=== PATIENT | female | born 1945 | race Caucasian/White ===

== ENCOUNTER 2016-10-21 16:48 | Emergency (ER) | payer OTHER ==
[~2016-10-21] VITALS: Ht 160 cm; Wt 84.4 kg
[~2016-10-21 16:48] MED LIST: ACTOPLUS MET 851 TAB PO; ACTOS30 M1 PO; ASPIRIN EC81 M1 PO; ATORVASTATIN CA20 MG PO; AUGMENTIN 875875 MG PO; CITALOPRAM HYDR20 MG PO; CLINDAMYCIN HY300 MG PO; DILTIAZEM 24HR180 MG PO; FERROUS SULFAT325 M3 PO; LEVEMIR100 UNIT/1 SC; PANTOPRAZOLE SO40 M1 PO; REGLAN10 MG PO; SYNTHROID75 MCG PO
--- NOTE | 2016-10-21 17:28 | ED UPPER/LOWER EXTREMITY COMPL ---
History of Present Illness General Chief Complaint: Fall Stated Complaint: R ARM PAIN S/P FALL Source: patient, family Exam Limitations: no limitations Vital Signs & Intake/Output Vital Signs & Intake/Output Vital Signs Date Time Temp Pulse Resp B/P B/P Pulse O2 O2 Flow FiO2 Mean Ox Delivery Rate 10/21 2114 97.7 68 16 138/66 97 Room Air 10/21 1910 Room Air 10/21 1831 96.2 68 18 178/82 97 Room Air 10/21 1650 97.4 60 20 138/82 98 Room Air Allergies Coded Allergies: amoxicillin (From AUGMENTIN) (PT REPORTS CAN ONLY TAKE IV, IF TAKEN ORALLY VOMITS 01/18/16) clavulanic acid (From AUGMENTIN) (PT REPORTS CAN ONLY TAKE IV, IF TAKEN ORALLY VOMITS 01/18/16) Reconcile Medications Aspirin (Ecotrin*) 81 MG TABLET.DR 1 TAB PO DAILY HEART/BLOOD (Reported) Atorvastatin Calcium 20 MG TABLET 1 TAB PO DAILY CHOLESTEROL (Reported) Diltiazem HCl (Diltiazem 24HR ER) 180 MG CAP.ER.24H 1 CAP PO DAILY HEART/BP ( Reported) Ferrous Sulfate 325 MG TABLET 1 TAB PO DAILY SUPPLEMENT (Reported) Insulin Detemir (Levemir) 100 UNIT/ML VIAL 12 UNITS SC BID DM (Reported) Insulin Lispro (Humalog) 100 UNIT/ML VIAL DM (Reported) Levothyroxine Sodium (Synthroid) 75 MCG TABLET 1 TAB PO DAILY THYROID ( Reported) Pantoprazole Sodium 40 MG TABLET.DR 1 TAB PO DAILY GI (Reported) Pioglitazone HCl (Actos) 30 MG TABLET 1 TAB PO DAILY DIABETES (Reported) Tramadol HCl 50 MG TABLET 1 TAB PO TID PRN PAIN Triage Note: PT TO ED C/O RIGHT ARM PAIN S/P TRIP AND FALL 1 HOUR AGO. DENIES LOC. PT ARRIVES WITH ARM IN SLING. +CMS, + PULSES. MEDICATED WITH TYLENOL IN TRIAGE. PT ALSO NOTED WITH BRUISE ABOVE RIGHT EYE. Triage Nurses Notes Reviewed? yes Onset: Abrupt Duration: constant Timing: single episode today Severity: severe Severity Numbers: 6 Method of Injury: direct blow, fall No Modifying Factors: none Modifying Factors: Improves With: rest. Worsens With: movement. HPI: Patient is a 71-year-old female who presents emergency that today patient was in her normal state of health patient stepped down on a step in a private residence where she subsequently lost her balance striking the right upper extremity to the ground which patient subsequently hit her right forehead to the ground as well. No loss of consciousness had occurred. No preceding episode of lightheaded sensation her dizziness had occurred. Patient does complain of a contusion to the right forehead and complains of right entire upper extremity pain. Shoulder immobilizer was placed prior to arrival. Patient is [id number]. Skin is intact. No bleeding has occurred (VANI RON) Past History Travel History Traveled to [place] past 21 day No Medical History Any Pertinent Medical History? see below for history Cardiovascular: hypertension Gastrointestinal: GERD Psychiatric: anxiety, depression Endocrine: diabetes, hypothyroidism Pneumonia Vaccine: 03/19/09 Influenza Vaccine: 03/19/12 Surgical History Surgical History: non-contributory Psychosocial History Who do you live with Spouse Services at Home None What is your primary language Togolese Tobacco Use: Quit >30 days ago ETOH Use: denies use Illicit Drug Use: denies illicit drug use Family History Hx Contributory? No (VANI RON) Review of Systems Review of Systems Constitutional: Reports: no symptoms. EENTM: Reports: no symptoms. Respiratory: Reports: no symptoms. Cardiovascular: Reports: no symptoms. Gastrointestinal/Abdominal: Reports: no symptoms. Genitourinary: Reports: no symptoms. Musculoskeletal: Reports: see HPI, joint pain. Skin: Reports: no symptoms. Neurological/Psychological: Reports: no symptoms. Hematologic/Endocrine: Reports: no symptoms. Immunological: Reports: no symptoms. All Other Systems: Reviewed and Negative (VANI RON) Physical Exam Physical Exam General Appearance: no apparent distress, alert, comfortable Neurologic/Tendon: normal sensation, normal motor functions, normal tendon functions, responds to pain, no evidence tendon injury, no pulse deficit Skin: intact, warm/dry Comments: Well-developed well-nourished person in no acute distress HEENT: Normal EENT exam, extraocular motion intact, no nystagmus. Pupils equally round and reactive to light and accommodation. Nose is atraumatic. External auditory canal and Tympanic membranes clear. Pharynx normal. No swelling or edema. Neck: Supple, no lymphadenopathy, normal range of motion without pain or tenderness No central spinous tenderness Back: Nontender, no CVA tenderness. No central spinous tenderness Cardiovascular: Regular rate and rhythms no murmurs rubs or gallops, normal JVP Respiratory: Chest nontender. No respiratory distress.breath sounds clear to auscultation bilaterally Abdomen: Soft, nontender nondistended, no appreciable organomegaly. Normal bowel sounds. No ascites Extremity: No edema, no calf tenderness to palpation, normal and equal pulses. Right shoulder normal inspection generalize glenohumeral and acromioclavicular point tenderness noted, decreased active range of motion of 20 of flexion abduction Right elbow decreased active range of motion generalized point tenderness Right wrist decreased active range of motion generalized point tenderness Radial pulse +2 right upper extremity dermatomes intact Neuro: Alert oriented x3, sensory normal, cranial nerves II through XII grossly intact. Skin: No appreciable rash on exposed skin, skin is warm and dry. Psych: Mood and affect is normal, memory and judgment is normal. Head-right frontal noted contusion ecchymosis and mild point tenderness and swelling skin intact (VANI RON) Progress Differential Diagnosis: arterial insufficiency, compartment syndrome, contusion, dislocation, DVT, fracture, gout, septic arthritis, sprain, tendon injury, FRACTURE, ICH Plan of Care: Orders Procedure Date/time Status Durable Medical Equipment 10/21 1944 Active Patient's right upper extremity is neurovascularly intact. Patient resting comfortably and states that she had improvement of Tylenol prior to evaluation declines at this time any more pain medication Patient after x-rays were resulted had worsening pain with tramadol was administered Discussed x-ray results with Dr. HARDEN for concerns of humeral fracture in which he advised me to place patient in a right coaptation splint which this was administered. Pre-and post-neurovascular was intact. He also advised patient to be safely discharged and follow up in office. Patient's will drive patient home. Discussed disposition planning the patient Plan discharge patient looks well no apparent distress and will comply with discharge instructions and had no questions (VANI RON) Diagnostic Imaging: Viewed by Me: Radiology Read. Radiology Impression: acute abnormality, fracture Comments: PATIENT: MARIANELA CASTRO PRESENT AGE: 71 PATIENT ACCOUNT NO: [id number] : 45 LOCATION: [facility] ORDERING PHYSICIAN: VANI KEVIN SERVICE DATE: 10/21/16 EXAM TYPE: RAD - XRY-SHOULDER COMPLETE-RIGHT EXAMINATION: XR SHOULDER, RIGHT CLINICAL INFORMATION: Fall. Arm pain. COMPARISON: None TECHNIQUE: Three views of the right shoulder. FINDINGS: There is an oblique mildly displaced fracture of the proximal shaft of the humerus inferior to the humeral head. There is a component of the fracture extending through the surgical neck as well. The glenohumeral joint and acromioclavicular joint are normal. No dislocation. IMPRESSION: Fracture of right proximal humerus. PATIENT: MARIANELA CASTRO PRESENT AGE: 71 PATIENT ACCOUNT NO: [id number] : 45 LOCATION: ER ORDERING PHYSICIAN: VANI KEVIN SERVICE DATE: 10/21/16 EXAM TYPE: RAD - XRY-ELBOW 3 OR MORE VIEWS, R; XRY-WRIST COMPLETE-RIGHT EXAMINATION: XR ELBOW, RIGHT XR WRIST, RIGHT CLINICAL INFORMATION: Pain after fall COMPARISON: None TECHNIQUE: Right wrist, 3 views Right elbow, 3 views FINDINGS: Right elbow: The patient was unable to fully extend the elbow. Bones have normal alignment at the elbow. The joint spaces are maintained. There is no elbow joint effusion. Right wrist: Bones have normal alignment at the distal forearm and wrist. The carpal joint spaces are maintained. There is minimal osteophyte formation of the first carpometacarpal joint. Radial artery calcification is noted. There is a 0.5 cm subarticular cyst within the medial base of the proximal phalanx of the thumb. IMPRESSION: No acute fracture or subluxation at the right elbow. No acute osseous injury within the distal right forearm or wrist. PATIENT: MARIANELA CASTRO PRESENT AGE: 71 PATIENT ACCOUNT NO: [id number] : 45 LOCATION: ER ORDERING PHYSICIAN: VANI KEVIN SERVICE DATE: 10/21/16 EXAM TYPE: CAT - CT HEAD WO IV CONTRAST EXAMINATION: CT HEAD WITHOUT CONTRAST CLINICAL INFORMATION: Right frontal head strike COMPARISON: None TECHNIQUE: Contiguous axial imaging was performed from the skull base to vertex without intravenous administration of contrast. DLP: 616.15 mGy-cm FINDINGS: There is no evidence of acute intracranial hemorrhage or territorial infarction. No abnormal mass effect or midline shift is seen. Kirk to white matter differentiation is well preserved. No extra-axial fluid collections are identified. Vascular calcification at the internal carotid arteries bilaterally The ventricles are normal in size. There is no abnormal attenuation within the brain parenchyma. The osseous structures and soft tissues are normal. There is air-fluid levels in the dependent right and left maxillary sinuses. The mastoid air cells and middle ear cavities are normally aerated. IMPRESSION: 1. No acute intracranial pathology. 2. Sinus disease. DICTATED BY: TERE GOOD MD (VANI RON) Departure Departure Disposition: HOME OR SELF CARE Condition: Stable Clinical Impression Primary Impression: Right humeral fracture Referrals: MERYL QUINTANILLA,TERE [facility] (PCP/Family) FINA QUINTANILLA,DIANA Reyes Additional Instructions: As discussed leave the splint and shoulder immobilizer on that has been placed on you in the emergency room, please leave this on at all times until you follow up with the orthopedic doctor. On Monday please call orthopedic DR. HARDEN for further evaluation treatment. Begin the prescription of tramadol for pain. If symptoms worsen return to the emergency room. Prescriptions waiting at [facility] pharmacy Departure Forms: Customer Survey General Discharge Information Prescriptions: Current Visit Scripts Tramadol HCl 1 TAB PO TID PRN PAIN #15 TAB (VANI RON) PA/PERIODONTAL ASSISTANT Co-Sign Statement Statement: ED Attending supervision documentation- [] I saw and evaluated the patient. I have also reviewed all the pertinent lab results and diagnostic results. I agree with the findings and the plan of care as documented in the PA's/PERIODONTAL ASSISTANT's documentation. [x] I have reviewed the ED Record and agree with the PA's/PERIODONTAL ASSISTANT's documentation. [] Additions or exceptions (if any) to the PAs/PERIODONTAL ASSISTANT's note and plan are summarized below: [] (BRENDAN QUINTANILLA,NENO Reyes) Procedures Splinting Location: RIGHT ARM Manual Alignment Performed: No Hand-Made Type: orthoglass Splint: COAPTATION SPLINT Splint Applied By: splint applied by other Pre-Proc Neuro Vasc Exam: normal Post-Proc Neuro Vasc Exam: normal (VANI RON)
--- NOTE | 2016-10-21 18:12 | CT SCAN REPORT ---
EXAMINATION: CT HEAD WITHOUT CONTRAST CLINICAL INFORMATION: Right frontal head strike COMPARISON: None TECHNIQUE: Contiguous axial imaging was performed from the skull base to vertex without intravenous administration of contrast. DLP: 616.15 mGy-cm FINDINGS: There is no evidence of acute intracranial hemorrhage or territorial infarction. No abnormal mass effect or midline shift is seen. Kirk to white matter differentiation is well preserved. No extra-axial fluid collections are identified. Vascular calcification at the internal carotid arteries bilaterally The ventricles are normal in size. There is no abnormal attenuation within the brain parenchyma. The osseous structures and soft tissues are normal. There is air-fluid levels in the dependent right and left maxillary sinuses. The mastoid air cells and middle ear cavities are normally aerated. IMPRESSION: 1. No acute intracranial pathology. 2. Sinus disease.
[2016-10-21] MEDS ORDERED: ATORVASTATIN CA20 M1 PO (18:28)
[2016-10-21] MEDS ORDERED: LEVEMIR100 UNIT/1 SC (18:29)
[2016-10-21] MEDS ORDERED: HUMALOG100 UNIT/2 SC (18:30)
--- NOTE | 2016-10-21 18:40 | RADIOLOGY REPORT ---
EXAMINATION: XR SHOULDER, RIGHT CLINICAL INFORMATION: Fall. Arm pain. COMPARISON: None TECHNIQUE: Three views of the right shoulder. FINDINGS: There is an oblique mildly displaced fracture of the proximal shaft of the humerus inferior to the humeral head. There is a component of the fracture extending through the surgical neck as well. The glenohumeral joint and acromioclavicular joint are normal. No dislocation. IMPRESSION: Fracture of right proximal humerus.
--- NOTE | 2016-10-21 18:41 | RADIOLOGY REPORT ---
EXAMINATION: XR ELBOW, RIGHT XR WRIST, RIGHT CLINICAL INFORMATION: Pain after fall COMPARISON: None TECHNIQUE: Right wrist, 3 views Right elbow, 3 views FINDINGS: Right elbow: The patient was unable to fully extend the elbow. Bones have normal alignment at the elbow. The joint spaces are maintained. There is no elbow joint effusion. Right wrist: Bones have normal alignment at the distal forearm and wrist. The carpal joint spaces are maintained. There is minimal osteophyte formation of the first carpometacarpal joint. Radial artery calcification is noted. There is a 0.5 cm subarticular cyst within the medial base of the proximal phalanx of the thumb. IMPRESSION: No acute fracture or subluxation at the right elbow. No acute osseous injury within the distal right forearm or wrist.
[2016-10-21] MEDS ORDERED: TRAMADOL HCL50 M1 PO (20:55)
[2016-10-21 21:15] VITALS: BP 138/66
== END 2016-10-21 21:23 ==
LOC: ERH 16:48
DX: S42.301A Unspecified fracture of shaft of humerus, right arm, initial encounter for closed fracture (principal); W19.XXXA Unspecified fall, initial encounter; Y92.009 Unspecified place in unspecified non-institutional (private) residence as the place of occurrence of the external cause; Y93.9 Activity, unspecified
CPT/HCPCS: 73030-RT; 73080-RT; 73110-RT